=== PATIENT | female | born 1970 | race Caucasian/White ===

== ENCOUNTER 2017-06-15 12:17 | Inpatient (IN) | payer BC, OTHER ==
[~2017-06-15] VITALS: Ht 177.8 cm; Wt 61.2 kg
[2017-06-15] MEDS ORDERED: ONDANSETRON 4 MG/2 ML VIAL IM PRN (17:15)
[2017-06-15] MEDS ORDERED: HYDROXYZINE PAMOATE 25 MG CAPSULE PO PRN (17:15)
[2017-06-15] MEDS ORDERED: BUPRENORPHINE HCL 2 MG TAB.SUBL SL PRN (17:15)
[2017-06-15] MEDS ORDERED: ACETAMINOPHEN 325 MG TABLET PO PRN (17:15)
[2017-06-15] MEDS ORDERED: LOPERAMIDE HCL 2 MG CAPSULE PO PRN ×2 (17:15)
[2017-06-15] MEDS ORDERED: CLONIDINE HCL 0.1 MG TABLET PO PRN (17:15)
[2017-06-15] MEDS ORDERED: MAGNESIUM HYDROXIDE 30 ML LIQUID UDC PO PRN (17:15)
[2017-06-15] MEDS ORDERED: MIRALAX 17 GM POWD.PACK PO PRN (17:15)
[2017-06-15] MEDS ORDERED: DICYCLOMINE HCL 20 MG TABLET PO PRN (17:15)
[2017-06-15 17:46] LABS: *URINE HCG, QUAL NEGATIVE (NEGATIVE)
[2017-06-15 17:48] LABS: BASOPHILS # (AUTO) 0.1 K/uL (0.0-8.0); BASOPHILS % (AUTO) 0.7 % (0.0-2.0); EOSINOPHILS # (AUTO) 0.1 K/uL (0.0-0.7); EOSINOPHILS % (AUTO) 1.1 % (0.0-7.0); HEMATOCRIT 40.9 % (37-47); HEMOGLOBIN 13.7 G/DL (12.0-16.0); LYMPHOCYTES # (AUTO) 2.4 K/UL (0.8-4.8); LYMPHOCYTES % (AUTO) 24.2 % (20.5-51.5); MEAN CORPUSCULAR HEMOGLOBIN 29.8 UUG (27.0-31.0); MEAN CORPUSCULAR HGB CONC 33 g/dL (32.0-37.0); MEAN CORPUSCULAR VOLUME 89.1 FL (81.0-99.0); MONOCYTES # (AUTO) 0.7 K/UL (0.1-1.30); MONOCYTES % (AUTO) 7.1 % (0.0-11.0); NEUTROPHILS # (AUTO) 6.6 K/UL (1.8-8.9); NEUTROPHILS % (AUTO) 66.9 % (38.5-71.5); PLATELET COUNT (AUTO) 279 K/UL (150-450); RED BLOOD CELL COUNT(AUTO) 4.59 MIL/UL (4.2-5.4); WHITE BLOOD COUNT (AUTO) 9.9 K/UL (4.0-11.2)
[2017-06-15 17:50] VITALS: BP 118/72
--- NOTE | 2017-06-15 17:50 | NUR ---
PRE-ADMISSION Pt is in intake, alert and oriented x4. [facility]. Pt states of anxiety. Pt denies any pain or discomfort. VS are BP 118/72, P 72, R 16, O2 97% T 98.2. PA 0/10. No tremors seen or felt. Pt states of having allergies to PCN and Bactrim. Pt was seen and examined by Dr. Hansen. Pt is in stable condition and will admit pt to third floor.
[2017-06-15 17:51] LABS: *AMPHETAMINE, URINE NEGATIVE (NEGATIVE); *BARBITURATE, URINE NEGATIVE (NEGATIVE); *CANNABINOID, URINE NEGATIVE (NEGATIVE); *COCCAINE, URINE NEGATIVE (NEGATIVE); *OPIATE, URINE NEGATIVE (NEGATIVE); *PHENCYCLIDINE SCREEN,URINE NEGATIVE (NEGATIVE)
[2017-06-15 17:54] LABS: ALANINE AMINOTRANSFERASE 23 U/L (14-59); ALKALINE PHOSPHATASE 44 U/L (50-136); ASPARTATE AMINOTRANSFERASE 14 U/L (15-37); BILIRUBIN,TOTAL 0.2 mg/dL (0.2-1.0); CARBON DIOXIDE 25 mmol/L (21-32); CHLORIDE 108 mmol/L (98-107); CREATININE 0.8 mg/dL (0.6-1.3); GLUCOSE 90 mg/dL (74-106); MAGNESIUM 1.9 mg/dL (1.8-2.4); TOTAL PROTEIN, SERUM 7.4 g/dL (6.4-8.2); UREA NITROGEN, BLOOD 9 mg/dL (7-18)
[2017-06-15 17:55] LABS: ETHANOL < 3 MG/DL (0-0)
--- NOTE | 2017-06-15 18:00 | NUR ---
BODY CHECK Body check complete. Skin is intact, warm and dry to touch. Pt is noted with surgical scar on left side of neck from neck surgery 6 weeks ago.
[2017-06-15] MEDS ORDERED: OXYC-132 PO (18:33)
[2017-06-15] MEDS ORDERED: TOPI100T PO (18:33)
[2017-06-15] MEDS ORDERED: GABA-534 PO (18:33)
[2017-06-15] MEDS ORDERED: CLON0.1T PO (18:33)
[2017-06-15] MEDS ORDERED: LAMO100T PO (18:33)
[2017-06-15] MEDS ORDERED: OMEP40CA37 PO (18:33)
[2017-06-15] MEDS ORDERED: ATOR10TA PO (18:33)
[2017-06-15] MEDS ORDERED: ESCI10TA PO (18:33)
[2017-06-15] MEDS ORDERED: ATOR80TA PO (18:33)
[2017-06-15] MEDS ORDERED: LATUDA 20 MG (18:37)
[2017-06-15 20:00] VITALS: BP 117/85
--- NOTE | 2017-06-15 21:00 | NUR ---
ADMISSION NOTE-- HT-5 FEET, O INCHES. WT- 135 POUNDS OJ=186/85,T=98.3,HR=72,R=16,O2 GWJ=292%. COWS=3. Admitting 47 y/o female to [facility] for Opiate dependency under the care of Dr Hansen and Dr Davis.Pt is A/O x 4.She is allergic to PCN and Bactrim.Placed on regular diet and full code status.Pt has been taking Percocet 20 mgs daily for the past 3 months for pain due to neck surgery she had in March 2017 for disc replacement.Pt also reports HX of Bipolar disorder,acid reflux and hypercholesteremia.No HX of seizures noted.Pt has a PCP-Dr. Charles.Pt arrived on unit at 1753,was oriented to unit by day shift. notified.Skin check done,skin is intact,warm and dry to touch,pt has a surgical scar on her neck;breathing is even and non labored;abdomen is soft and palpable.no c/o n/v/d noted.Care plan and safety checks initiated.All safety measures in place;bed is locked in the lowest position with side rails up x 2,call light within reach.Pt does not have any detox hx for Percocet.She has hx of rehab for alcohol 2 years ago.She has not been drinking alcohol for 2 years.No c/o pain or s/s of acute distress noted at this time,will continue to monitor.
[2017-06-15] MEDS: GABAPENTIN 300 MG CAPSULE PO SCH (21:04)
--- NOTE | 2017-06-15 21:30 | NUR ---
MD COMMUNICATION PT STATED "I NEED TO TAKE MY BIPOLAR MEDICATIONS,I CANNOT MISS THEM".DR DUMONT CALLED AND NOTIFIED.ORDERS RECEIVED FOR LAMICTAL AND TOPAMAX.NOTED AND CARRIED OUT.
[2017-06-15] MEDS ORDERED: TOPIRAMATE 100 MG TABLET PO ONE (22:15)
[2017-06-15] MEDS: LAMOTRIGINE 100 MG TABLET PO SCH (22:16)
[2017-06-15] MEDS: METHOCARBAMOL 750 MG TABLET PO PRN (22:17)
--- NOTE | 2017-06-15 22:20 | NUR ---
PRN MEDS PRN VISTARIL,CLONIDINE AND ROBAXIN GIVEN ORDERED FOR C/O ANXIETY,CHILLS AND MYALGIA RESPECTIVELY,PER PT REQUEST.WILL MONITOR.
[2017-06-15] MEDS ORDERED: LAMOTRIGINE 100 MG TABLET ONE (22:22)
[2017-06-15] MEDS ORDERED: TOPIRAMATE 100 MG TABLET ONE (22:23)
--- NOTE | 2017-06-15 23:20 | NUR ---
PRN F/U PT VERBALIZES A DECREASE IN MYALGIA BUT STILL C/O ANXIETY,SAID "I FEEL LIKE TAKING MY PERCOCET.THIS IS HOW I FEEL WHEN I NEED MY PERCOCET".RELAXATION TECHNIQUES ENCOURAGED.WILL CONTINUE TO MONITOR.
[2017-06-15] MEDS: diphenhydrAMINE 50 MG CAPSULE PO PRN (23:47)
--- NOTE | 2017-06-15 23:55 | NUR ---
PRN BENADRYL GIVEN ORDERED FOR C/O INSOMNIA.WILL MONITOR.
[2017-06-16] VITALS: BP 116/75
--- NOTE | 2017-06-16 00:35 | NUR ---
PRN MED- PRN SUBUTEX 4 MG SL GIVEN FOR COWS SCORE OF 16.PT C/O EXTREME ANXIETY,UNABLE TO REST/SLEEP,WITH RUNNY NOSE,HAND TREMORS,ABDOMINAL DISCOMFORT AND GENERALIZED ACHES.WILL CONTINUE TO MONITOR.
--- NOTE | 2017-06-16 01:30 | NUR ---
PRN F/U PRN MEDS ARE EFFECTIVE.PT IS RESTING IN BED WITH EYES CLOSED,BREATHING IS EVEN AND NON LABORED.NO S/S OF DISTRESS NOTED.WILL CONTINUE TO MONITOR.
[2017-06-16 04:00] VITALS: BP 92/5
--- NOTE | 2017-06-16 06:33 | NUR ---
END OF SHIFT Pt is 47 y/o female admitted to [facility] for Opiate dependency.Pt is A/O x 4.She is allergic to PCN and Bactrim.Placed on regular diet and full code status.Pt has been taking Percocet 20 mgs daily for the past 3 months for pain due to neck surgery she had in March 2017 for disc replacement.Pt also reports HX of Bipolar disorder,acid reflux and hypercholesteremia.No HX of seizures noted.Initial CIWA was 18,medicated with PRN ativan,benadryl,vistaril,clonidine and robaxin with good effect.Pt slept 5 hrs,fluid intake was 1000 mls,voided x 3.All safety measures in place;bed is locked in the lowest position with side rails up x 2,call light within reach,will continue to monitor.
--- NOTE | 2017-06-16 07:00 | NUR ---
Start of Shift Notes: Received patient in her room. Alert and verbally responsive. Oriented x 4. Able to make needs known. Respirations even and unlabored. No SOB noted. Skin warm and dry to touch. Abdomen soft and non-distended with (+) BS in all 4 quadrants. No complains of N/V/D or constipation noted. Voids independently. No complains of dysuria noted. Ambulatory ad peg with steady gait. Patient is a 47 year old female admitted for opiate dependence who was placed on a 3-day Subutex taper as ordered. No adverse reactions noted. Has past medical hx of bipolar disorder, acid reflux and high cholesterol. Prior to admission, patient was using 20 mg of Percocet daily x 3 months. Educated patient on the current plan of care for the day and her medication regimen. Encouraged oral fluid intake and encouraged group participation to learn new skills to prevent relapse. Siderails up and padded for safety. Call light kept in reach. Will continue to monitor closely. Addendum: 06/16/17 at 0746 by CHARISSA WILDE LVN Note clarification. Patient was not placed on any taper at this time.
--- NOTE | 2017-06-16 07:53 | NUR ---
Order Clarification: Order clarification obtained regarding patient's Topamax. Per patient, she uses Topamax 100 mg PO at HS only not BID. Order clarified with MD. Orders noted and carried out.
[2017-06-16 08:00] VITALS: BP 97/51
[2017-06-16] MEDS: DOCUSATE SODIUM 250 MG CAPSULE PO SCH (08:53)
[2017-06-16] MEDS: GABAPENTIN 300 MG CAPSULE PO SCH ×3 (08:53→21:52)
[2017-06-16] MEDS: LAMOTRIGINE 100 MG TABLET PO SCH ×2 (08:53→21:51)
[2017-06-16] MEDS: IBUPROFEN 600 MG TABLET PO PRN ×2 (08:53→21:52)
--- NOTE | 2017-06-16 08:53 | NUR ---
Mylanta 30cc PO/Ibuprofen 600 mg PO given: Patient noted of acid reflux/GI upset and complain of 4/10 headache. Medicated patient with Motrin 600 mg PO as ordered and Mylanta 30 cc PO. Will monitor for effectiveness.
[2017-06-16] MEDS: MAG HYDROX/AL HYDROX/SIMETH 30 ML LIQUID UDC PO PRN (08:55)
[2017-06-16] MEDS ORDERED: TOPIRAMATE 100 MG TABLET PO SCH (09:00)
[2017-06-16] MEDS ORDERED: TUBERCULIN,PURIF.PROT.DERIV. 5 TU/0.1 ML TEST ID ONE (09:00)
[2017-06-16] MEDS ORDERED: 3 DAY TAPER BUPRENORPHINE -SERENITY PROTOCOL SL PRN (09:00)
[2017-06-16] MEDS ORDERED: BUPRENORPHINE HCL 2 MG TAB.SUBL SL SCH (09:00)
--- NOTE | 2017-06-16 09:35 | NUR ---
Re-assessment: Per patient, PRN Motrin was effective in relieving headache. PL 0/10, and Mylanta 30cc PO was effective in reducing GI upset.
--- NOTE | 2017-06-16 10:35 | NUR ---
Admission UDS result: Patient's UDS also came (+) for benzodiazepine. Upon interview with the patient, she revealed that she took 0.5mg of Xanax on Sat (06/13/20170 and Sun (06/14/2017) due to anxiety. Patient states that she is prescribed Xanax for anxiety, however has not been taking it for 1 year until this past weekend. Notified MD, per MD, continue current orders.
--- NOTE | 2017-06-16 10:48 | NUR ---
Taper initiated: Patient was placed on 4-day Subutex taper today. First dose of 4mg SL was given with 0900 meds. Patient tolerated well. Education provided.
--- NOTE | 2017-06-16 11:11 | NUR ---
MD Communication: New orders: Patient noted with complain of itching. No rashes. No lesions noted on generalized body area. Notified MD Mckeon. Medicated patient with Benadryl 50 mg PO x 1 now. is away from the computer and is unable to enter in orders at this time. Orders noted and carried out.
[2017-06-16] MEDS ORDERED: diphenhydrAMINE 50 MG CAPSULE PO ONE (11:15)
[2017-06-16] MEDS: ESCITALOPRAM OXALATE 10 MG TABLET PO SCH (11:18)
--- NOTE | 2017-06-16 11:23 | NUR ---
Benadryl 50mg PO given: Medicated patient with x 1 dose of Benadryl 50 mg PO as ordered for itching. Will monitor for effectiveness.
[2017-06-16 12:00] VITALS: BP 92/61
[2017-06-16] MEDS: BUPRENORPHINE HCL 2 MG TAB.SUBL SL SCH ×3 (12:09→21:52)
--- NOTE | 2017-06-16 12:23 | NUR ---
Re-assessment: Per patient, PRN Benadryl was effective in relieving itching.
--- NOTE | 2017-06-16 15:00 | NUR ---
New orders: Patient noted with complains of urinary retention. Notified MD Hansen. Per MD, perform bladder scan. Bladder scan was performed and obtained 976cc of urine from the results. Notified Dr. Hansen per MD, monitor for 1 hour and if patient still does not void, to insert catheter. Notified patient.
[2017-06-16 16:00] VITALS: BP 109/71
--- NOTE | 2017-06-16 16:00 | NUR ---
MD Communication: Patient reports voiding 1x but still feels her bladder full. Notified Dr. Hansen with orders to do another bladder scan. Bladder scan was performed and obtained 775cc of urine. Notified Dr. Hnasen, per MD, insert indwelling catheter as ordered. Orders noted and carried out. Patient education provided. Will continue to encourage oral fluid intake.
--- NOTE | 2017-06-16 16:01 | NUR ---
Add'l notes: Bladder noted to be distended at this time.
--- NOTE | 2017-06-16 16:45 | NUR ---
F/C inserted: Juarez catheter [id number] inserted at this time via aseptic technique, with output of 1000cc of clear yellow urinary output. Patient was able to tolerated the procedure well. Educated patient on juarez catheter care. Educated patient on the s/s of UTI. Patient verbalized fair understanding. F/C patent and intact draining to a urinary leg bag.
--- NOTE | 2017-06-16 17:59 | NUR ---
Subutex 4 mg at 1700 held: Patient appears too sedated. Dozing on and off and unable to carry on a coherent conversation. Notified Dr. Hansen. Per , ok to hold 1700 dose at this time.
--- NOTE | 2017-06-16 19:15 | NUR ---
Start of Shift Patient Received. Patient noted in bed sleeping. Breathing even and non labored. No signs of pain or discomfort noted. Patient is a 47 year old female, admitted on 06/15/17 for Opioid Dependence, under the care of Dr. Hansen. Patient is currently receiving a 5 day Subutex taper. Patient verbalizes allergy to Bactrim and PCN, wishes to be full code, following a regular diet, Patient past medical history noted as Bipolar, Acid reflux, hyper cholesterol, and multiple bladder surgeries. Per endorsement, patient was verbalizing inability of voiding. Bladder scan rendered and noted with urine retention. New orders obtained for Linares catheter insertion. Patient able to tolerate a [place] 16 by 10cc. Last noted COWS 3. All needs attended to promptly. Will continue plan of care as ordered.
--- NOTE | 2017-06-16 19:18 | NUR ---
End of Shift Notes: Patient initiated her 3-day Subutex taper as ordered. No adverse reactions noted. Patient is tolerating taper well. VS monitored closely q 4 hours. No significant abnormalities noted. Withdrawal symptoms were closely monitored. Initial COWS 8. Patient presented with anxiety, gross tremors, headache, chills and hot flashes. Last COWS 3. Per patient, Subutex has been helping her with her withdrawal symptoms. Seen by Dr. Davis (psychiatrist) with new orders. Orders noted. Patient noted with episodes of oversedation during the day requiring Subutex to be held at 1700 but patient insisted on smoking. Patient became very agitated and wanted to smoke. Educated patient on the risk involved but patient still refused. MD made aware. To continue to monitor the patient. Unable to participate in group and activities due to her withdrawal symptoms and feelings of fatigue during the day. Linares catheter inserted today. FC 16x10 patent and intact draining to clear yellow colored urinary output. F/C care rendered. All needs met and attended. Call light in reach. Will continue to monitor closely.
[2017-06-16 20:30] VITALS: BP 110/68
[2017-06-16] MEDS ORDERED: NICOTINE POLACRILEX 4 MG GUM-PK OF TEN BC PRN (21:15)
[2017-06-16] MEDS: LATUDA 20 MG PO SCH (21:51)
[2017-06-16] MEDS: TOPIRAMATE 100 MG TABLET PO SCH (21:52)
--- NOTE | 2017-06-16 22:30 | NUR ---
PRN Medication Reassessment Patient noted in hallway going out for a smoke break. Patient is able to verbalize "the pain is so much better. The Motrin really helped a lot." PRN Motrin noted to be effective. Will continue to monitor.
--- NOTE | 2017-06-16 22:55 | NUR ---
PRN Medication Administration Patient verbalizing increased pain /10 due to juarez catheter. PRN Motrin administered with routine medications as per order. Will continue to monitor.
[2017-06-17 00:30] VITALS: BP 107/61
[2017-06-17 04:00] VITALS: BP 95/54
[2017-06-17] MEDS: IBUPROFEN 600 MG TABLET PO PRN ×3 (04:25→23:24)
--- NOTE | 2017-06-17 04:25 | NUR ---
PRN Motrin: Pt c/o headache, rates pain 4/10. Administered PRN Motrin 600mg PO as ordered. Will endorse f/u to primary nurse.
--- NOTE | 2017-06-17 06:59 | NUR ---
End of Shift Patient is in bed sleeping. Breathing even and non labored. No signs of pain or discomfort noted. Patient is a 47 year old female, admitted on 06/15/17 for Opioid Dependence, under the care of Dr. Hansen. Patient is currently receiving a 5 day Subutex taper. Patient verbalizes allergy to Bactrim and PCN, full code, Regular diet, skin noted intact. Patient past medical history noted as Bipolar, Acid reflux, hyper cholesterol, and multiple bladder surgeries. Linares Catheter patent and intact. PRN Motrin administered x2 for pain with medication noted to be effective. Last noted COWS 7. All needs attended to promptly. Will endorse to continue plan of care as ordered.
[2017-06-17] MEDS: MAG HYDROX/AL HYDROX/SIMETH 30 ML LIQUID UDC PO PRN ×3 (07:09→23:24)
--- NOTE | 2017-06-17 07:09 | NUR ---
Mylanta 30cc PO given: Patient noted with complain of GI upset and requested for Mylanta. Mylanta 30cc PO given at this time. Will monitor for effectiveness.
--- NOTE | 2017-06-17 07:10 | NUR ---
Start of Shift Notes: Received patient in her room. Alert and verbally responsive. Oriented x 4. Able to make needs known. Respirations even and unlabored. No SOB noted. Skin warm and dry to touch. Abdomen soft and non-distended with (+) BS in all 4 quadrants. No complains of N/V/D or constipation noted. F/C 16x10 patent and intact draining to clear yellow colored urinary output of 675cc. Ambulatory ad peg with steady gait. Patient is a 47 year old female admitted for opiate dependence who was placed on a 4-day Subutex taper as ordered. No adverse reactions noted. That was started yesterday. Has past medical hx of bipolar disorder, acid reflux and high cholesterol. Prior to admission, patient was using 20 mg of Percocet daily x 3 months. Educated patient on the current plan of care for the day and her medication regimen. Encouraged oral fluid intake and encouraged group participation to learn new skills to prevent relapse. Siderails up and padded for safety. Call light kept in reach. Will continue to monitor closely.
[2017-06-17 08:00] VITALS: BP 100/62
[2017-06-17 08:08] LABS: HEPATITIS B SURFACE AG Negative (Negative)
--- NOTE | 2017-06-17 08:09 | NUR ---
Re-assessment: Per patient, PRN Mylanta was effective in reducing patient's GI upset.
[2017-06-17] MEDS ORDERED: BUPRENORPHINE HCL 2 MG TAB.SUBL SL SCH ×2 (09:00)
[2017-06-17] MEDS ORDERED: Medication Not On Formulary EA (Omeprazole 1 CAP) PO SCH (09:00)
[2017-06-17] MEDS: ESCITALOPRAM OXALATE 10 MG TABLET PO SCH (09:28)
[2017-06-17] MEDS: DOCUSATE SODIUM 250 MG CAPSULE PO SCH (09:28)
[2017-06-17] MEDS: LAMOTRIGINE 100 MG TABLET PO SCH ×2 (09:28→21:42)
[2017-06-17] MEDS: GABAPENTIN 300 MG CAPSULE PO SCH ×3 (09:28→21:43)
[2017-06-17 12:00] VITALS: BP 97/59
--- NOTE | 2017-06-17 12:05 | NUR ---
MD Communication: Patient noted with complain of itching. Patient appears flushed. No hives noted. No rashes. No unusal lesions noted. Patient also verbalizes "I am having difficulty swallowing." However, patient is seen drinking water with no episodes of aspiration or difficulty swallowing. Patient was not allowed to smoke in the patio but continues to insist that she goes to smoke in the patio despite multiple times staff educated her on the risk involved. Offered Nicotine gum and became agitated along the hallway. Encouraged good behavior and explained the consequences. Patient still strongly insisted on going downstairs to smoke. Notified Dr. Hansen. MD is driving and unable to enter in orders. Orders obtained for Benadryl 25 mg PO q 6 hours PRN for itching. Orders noted and carried out.
[2017-06-17] MEDS: diphenhydrAMINE 25 MG CAP PO PRN (12:35)
--- NOTE | 2017-06-17 12:35 | NUR ---
Benadryl 25 mg PO given: Patient noted with complain of itching. Requested for Benadryl. Medicated patient with Benadryl 25 mg PO as ordered. Will monitor for effectiveness.
[2017-06-17] MEDS ORDERED: PANTOPRAZOLE SODIUM 40 MG TABLET.DR PO STA (12:37)
--- NOTE | 2017-06-17 12:45 | NUR ---
MD Communication: Patient complained of heartburn and nausea. Requested for Protonix to be given at this time. Notified MD Hansen. Per MD, OK to administer Protonix 40 mg PO x 1 now. MD is unable to enter in orders. Orders entered. Noted and carried out.
[2017-06-17] MEDS: ONDANSETRON ODT 4 MG TAB.RAPDIS SL PRN ×2 (12:58→23:25)
--- NOTE | 2017-06-17 12:59 | NUR ---
Zofran 4 mg ODT given/Protonix 40 mg PO given: Patient was given Protonix 40 mg PO and Zofran 4 mg ODT for nausea. Will monitor for effectiveness.
--- NOTE | 2017-06-17 13:35 | NUR ---
Re-assessment: Per patient, PRN Benadryl has been effective in reducing itching.
--- NOTE | 2017-06-17 13:59 | NUR ---
Re-assessment: Zofran and Protonix Per patient, PRN Zofran and Protonix has been effective in reducing GI upset and nausea. Will monitor closely.
[2017-06-17] MEDS: BUPRENORPHINE HCL 2 MG TAB.SUBL SL SCH ×2 (14:05→21:41)
[2017-06-17 16:00] VITALS: BP 117/80
--- NOTE | 2017-06-17 16:21 | NUR ---
Motrin 600 mg PO given: patient noted with complain of 5/10 generalized aching related to her withdrawal symptoms. Medicated patient with Motrin 600 mg PO as ordered. Will monitor for effectiveness.
--- NOTE | 2017-06-17 17:21 | NUR ---
Re-assessment: Per patient, PRN Motrin was efective in reducing patient's aching. PL 12/05.
--- NOTE | 2017-06-17 18:17 | NUR ---
Mylanta 30 cc PO given: Patient noted with complain of GI upset. Requested for Mylanta. Medicated patient with Mylanta 30 cc PO as ordered.
--- NOTE | 2017-06-17 19:00 | NUR ---
End of Shift Notes: Patient continues to be on 4-day Subutex taper as ordered. No adverse reactions noted. Patient is tolerating taper well. VS monitored closely. No significant abnormalities noted. Withdrawal symptoms were closely monitored. Patient presented with anxiety, chills, hot flashes and mild tremors. Initial COWS 5. Per patient, Subutex has been helping her with her withdrawal symptoms. Medicated patient with Mylanta 30cc po at 0709 for GI upset with help after 1 hour. At 1235, patient complained of itching. Medicated patient with Benadryl 25 mg PO as ordered with help afte 1 hour. Then patient complained of episodes of gastric reflux and gastritis, medicated patient with Protonix 40 mg and Zofran 4 mg ODT PO for nausea with help after 1 hour. PRN Motrin was given at 1621 for generalized body aches and Mylanta 1816 for GI upset. Last COWS 3. Patient was unable to participate in group and activities. Spends most of the day smoking in the patio and at times hovers at the nurses station demanding for more meds despite education was provided. F/C patient and intact. Draining to clear yellow colored urinary output. FC care rendered. Emptied x 4 times with good output of 1975cc Tolerated well. All needs met and attended. Will continue to monitor closely.
--- NOTE | 2017-06-17 20:00 | NUR ---
START OF SHIFT NOTE Patient is a 47 year old female admitted for opiate dependence who was placed on a 4-day Subutex taper as ordered. No adverse reactions noted. . Past medical hx of bipolar disorder, acid reflux and high cholesterol. Prior to admission, patient was using 20 mg of Percocet daily x 3 months. Received patient in her room. Alert and verbally responsive. Oriented x 4. Able to make needs known. Respirations even and unlabored. No SOB noted. Skin warm and dry to touch. No complains of N/V/D or constipation noted. Ambulatory with steadt gait. Educated patient on the current plan of care for the day and her medication regimen. Encouraged oral fluid intake and encouraged group participation to learn new skills to prevent relapse. Siderails up and padded for safety. Call light kept in reach. Will continue to monitor closely.
[2017-06-17] MEDS: LATUDA 20 MG PO SCH (21:41)
[2017-06-17] MEDS: TOPIRAMATE 100 MG TABLET PO SCH (21:42)
[2017-06-17] MEDS: ATORVASTATIN 10 MG TABLET PO SCH (21:42)
[2017-06-17 22:46] VITALS: BP 106/71
[2017-06-17] MEDS: diphenhydrAMINE 50 MG CAPSULE PO PRN (23:25)
[2017-06-18] VITALS (7 sets, daily range): BP systolic 89–126; BP diastolic 48–81
--- NOTE | 2017-06-18 00:22 | NUR ---
PRN MEDICATION ADMINISTRATION administered zofran 4mg as ordered at 2325 (06/17/17). Pt complained of nausea. Will reasses and continue to monitor
--- NOTE | 2017-06-18 00:25 | NUR ---
PRN MEDICATION ADMINISTRATION BENEDRYL 50MG WAS GIVEN AT 2325, TO PATIENT PER MD ORDER. PT COMPLAINED OF ITCHING. WILL REASSESS AND CONTINUE TO MONITOR.
--- NOTE | 2017-06-18 00:27 | NUR ---
PRN MEDICATION ADMINISTRATION MAALOX 30ML WAS ADMINISTERED TO PT FOR COMPLAINT OF HEARTBURN. WILL REASSESS AND CONTINUE TO MONITOR.
--- NOTE | 2017-06-18 01:00 | NUR ---
PRN REASSESSMENT PATIENT REASSESSED FOR NAUSEA, HEARTBURN, ITCHING AND BODY ACHES. PT SYMPTOMS HAS SUBSIDED AND SHE IS RESTING PEACEFULLY. WILL CONTINUE TO MONITOR.
[2017-06-18] MEDS ORDERED: PANTOPRAZOLE SODIUM 40 MG TABLET.DR PO SCH (07:00)
--- NOTE | 2017-06-18 07:00 | NUR ---
End of shift note Patient continues to be on 4-day Subutex taper as ordered. No adverse reactions noted. Patient is tolerating taper well. VS monitored closely. No significant abnormalities noted. Withdrawal symptoms were closely monitored. PRN meds Benedryl 50mg for itching, Maalox 30ml for heartburn, and Zofran 4mg for nausea, were given at 2355, all symptoms has subsided. Pt intake 2557ml, and slept 4.5hrs. F/C patent and intact. Urine output was 1500ml. Draining to clear yellow colored urinary output. FC care rendered. Tolerated well. All needs met and attended. Will continue to monitor closely.
--- NOTE | 2017-06-18 07:10 | NUR ---
Start of shift note Pt was admitted for opiate dependence. Pt is a full code, on a regular diet, report an allergy to PCN, and bactrim. pt has a PMhx of bipolar d/o, acid reflux, multiple bladder surgeries with a juarez catheter in place. Pt states that she is able to drain her f/c by herself, pt states that she is writing down the amounts that she drains. Educated pt to keep track of her PO fluids as well, pt verbalized her understanding. Pt is on day 4 of a subutex taper and tolerating well. Pt has no complaints at this time. Will continue to monitor pt. All needs addressed at this time.
[2017-06-18] MEDS ORDERED: BUPRENORPHINE HCL 2 MG TAB.SUBL SL SCH (09:00)
[2017-06-18] MEDS: BUPRENORPHINE HCL 2 MG TAB.SUBL SL SCH ×3 (09:57→21:37)
[2017-06-18] MEDS: IBUPROFEN 600 MG TABLET PO PRN ×2 (09:57→21:36)
[2017-06-18] MEDS: ESCITALOPRAM OXALATE 10 MG TABLET PO SCH (09:57)
[2017-06-18] MEDS: diphenhydrAMINE 25 MG CAP PO PRN ×2 (09:57→16:50)
[2017-06-18] MEDS: LAMOTRIGINE 100 MG TABLET PO SCH ×2 (09:57→21:35)
[2017-06-18] MEDS: DOCUSATE SODIUM 250 MG CAPSULE PO SCH (09:57)
[2017-06-18] MEDS: GABAPENTIN 300 MG CAPSULE PO SCH ×3 (09:57→21:35)
--- NOTE | 2017-06-18 09:58 | NUR ---
PRN administration Pt c/o body aches and back pain 02/02, and itching. Administered PRN motrin and benadryl per MD order. Will continue to monitor pt.
[2017-06-18] MEDS: MAG HYDROX/AL HYDROX/SIMETH 30 ML LIQUID UDC PO PRN ×3 (10:49→21:36)
[2017-06-18] MEDS: ONDANSETRON ODT 4 MG TAB.RAPDIS SL PRN ×3 (10:49→21:36)
--- NOTE | 2017-06-18 10:58 | NUR ---
PRN administration/Reassessment Pt states that her pain and itching have subsided. However pt states that she has nausea and states "I believe that it is from the medication" Administered PRN zofran and maalox. Dr Hansen notified. Will continue to monitor pt.
--- NOTE | 2017-06-18 11:28 | NUR ---
Reassessment Pt states that the medication was effective in alleviating her nausea.
[2017-06-18] MEDS ORDERED: FAMOTIDINE 20 MG TABLET PO ONE (14:00)
--- NOTE | 2017-06-18 14:52 | NUR ---
Therapist prompted client about group times. Client stated she will attend all groups.
--- NOTE | 2017-06-18 16:50 | NUR ---
PRN administration Pt c/o nausea, dyspepsia and itching. Administered PRN maalox, zofran and benadryl.
--- NOTE | 2017-06-18 17:20 | NUR ---
Reassessment Pt states that the medication was effective in reducing her nausea and dyspepsia. Will continue to monitor pt.
--- NOTE | 2017-06-18 17:53 | NUR ---
Reasssessment Pt states that her itching has subsided. Will continue to monitor pt.
--- NOTE | 2017-06-18 18:55 | NUR ---
End of shift note Pt was admitted for opiate dependence. Pt is a full code, on a regular diet, report an allergy to PCN, and bactrim. pt has a PMhx of bipolar d/o, acid reflux, multiple bladder surgeries with a juarez catheter in place. Catheter is draining well. Pt is able to drain the f/c herself. Urine noted to be light yellow and clear. No apparent odor noted. Pt is on day 4 of a subutex taper and tolerating well. Pt had nausea x 2 today, Maalox x 2, Benadryl x 2 and motrin x 1 during the shift with effectiveness for her withdrawal s/s. Pt had 2300ml of urine out, drank 2750 ml of fluids and at 100% of breakfast and dinner, ate 50% of lunch. Pt has no further complaints at this time. Pt had a recent COWS of 5. Will endorse SBAR to oncoming shift.
--- NOTE | 2017-06-18 19:45 | NUR ---
Start of shift note Endorsement from AM shift. Pt was admitted for opiate dependence on 06/15/17. Patient is a full code, on a regular diet, reports an allergy to PCN, and bactrim. pt has a past psych history of bipolar d/o, and past medical history of acid reflux, multiple bladder surgeries with a juarez catheter in place. Pt states that she is able to drain her cathetar by herself, pt states that she is writing down the amounts that she drains. at start of shift patient Educated pt to keep track of her PO fluids as well, pt verbalized her understanding. Pt is on day 4 of a subutex taper and tolerating well. Pt has no complaints at present time. Will continue to monitor pt. All needs met at this time. Safety measures in place.
[2017-06-18] MEDS: TOPIRAMATE 100 MG TABLET PO SCH (21:35)
[2017-06-18] MEDS: ATORVASTATIN 10 MG TABLET PO SCH (21:35)
[2017-06-18] MEDS: diphenhydrAMINE 50 MG CAPSULE PO PRN (21:36)
[2017-06-18] MEDS: METHOCARBAMOL 750 MG TABLET PO PRN (21:36)
--- NOTE | 2017-06-18 21:36 | NUR ---
PRN Medication Patient with complaints of nausea. Administered zofran 4mg SL at 2135 with effect pending. Patient C/O "heartburn" administered Maalox 30 ML PO at 2135.with effect pending Patient with complaints of Body aches of a 7 out of 10 and muscle spasms of a 6 out of 10. Patient given Robaxin 750 mg PO and Motrin 600 mg PO at 2135 with effect pending. Patient C/O inability to sleep/insomnia. Administered Benadryl 50 mg PO at 2135 with effect pending.
[2017-06-18] MEDS: LATUDA 20 MG PO SCH (21:37)
--- NOTE | 2017-06-18 22:36 | NUR ---
Reassessment of patient zofran 4mg SL given at 2135 with good effect noted at 2235 with no further C/O nausea. Maalox 30 ML PO given at 2135 for heatburn with effectiveness noted at 2235. No further C/O heartburn present. Patient given Robaxin 750 mg PO and Motrin 600 mg PO at 2135 reassessed at 2235 with relief of muscle spasms and decrease in body aches to a 3 out of 10. . Administered Benadryl 50 mg PO at 2135 with reassessment at 2235 with patient still awake, but stating she is beginning to feel effect.
[2017-06-19] VITALS: BP 116/81
[2017-06-19 04:00] VITALS: BP 101/62
[2017-06-19] MEDS: IBUPROFEN 600 MG TABLET PO PRN ×2 (04:51→15:26)
--- NOTE | 2017-06-19 04:58 | NUR ---
PRN Medication Patient reported Boidyaches of a 7 out of 10. Administered Motrin 600 mg PO at 0451. Effect pending.
--- NOTE | 2017-06-19 05:58 | NUR ---
Reassessment of patient Patient reassessed one hour after PRN Motrin 600mg given for bodyaches. Patient with no further C/O pain/bodyaches. Laying in bed resting comfortably.
--- NOTE | 2017-06-19 06:56 | NUR ---
End of Shift report: Patient is a 47 yr old female admitted on 06-15-17 for opiate detox. She is on a subutex taper and is currently on day 5. She is a full code and on a regular diet. She has allergies to PCN and Bactrim. Patient also has history of Bipolar disorder, acid reflux, and high cholesterol. She has had multiple bladder issues and surgeries. Due to urinary retention upon admission, a juarez catheter was inserted on 06-16-[address] with no noted issue. Patients VS at 2000: 128/70, SPO2 99 % on RA, P 78, R 16, T 97.7 COWS 2. Patients VS at 0000: BP 116/81, P 91, SPO2 96%, R 18. COWS 5. Patients VS at 0400: BP 101/62, P 103, SPO2 97% on RA, T 98.1, R 18. COWS: 4. Intake 3250 ml Output: 1850 ml via Juarez Catheter. No BM. Slept 6 [address] Safety measures in place. Endorsement to AM nurse given. Will continue to monitor.
--- NOTE | 2017-06-19 08:00 | NUR ---
START OF SHIFT Rcvd endorsement from ongoing nurse, client is in room, a/o x4, she presents with anxious mood, flat affect, moist skin, flushed face. She reports abdominal cramps and chills, no nausea or diarrhea. Juarez 16F 10mL intact/patent, 650mL of clear urine, normal odor, no sediments emptied from urinary leg bag. Client states "I do not want you to take the juarez out yet, I am scare I won't be able to urinate on my own, because I had a history of urinary problems." Encouraged client to increase fluid intake to facilitate detox. Encourage client to attend group therapy for skills to maintain sobriety. Client is a 47 yo female admitted for withdrawal from opiates. She is on last of 5 day Subutex taper, tolerating well. Last COWS 4 @ 0400. She reports allergies to Penicillin, Sulfamethoxazole and trimethoprim. Full code, regular diet. PRN Robaxin for muscle pain, Zofran for nausea, Maalox for heartburn, Motrin x 2 for generalized body aches, and Benadryl for inability to sleep, noted effective, client slept 6 hrs. Client denies any history of withdrawal-induced seizure. She is on universal precautions. Call light within reach. Side rails up x 2, bed locked and in low position.
[2017-06-19 08:15] VITALS: BP 104/71
[2017-06-19] MEDS: DOCUSATE SODIUM 250 MG CAPSULE PO SCH (08:51)
[2017-06-19] MEDS: OMEPRAZOLE 40MG PO SCH (08:51)
[2017-06-19] MEDS: FAMOTIDINE 20 MG TABLET PO SCH (08:51)
[2017-06-19] MEDS: ESCITALOPRAM OXALATE 10 MG TABLET PO SCH (08:51)
[2017-06-19] MEDS: GABAPENTIN 300 MG CAPSULE PO SCH ×2 (08:51→15:26)
[2017-06-19] MEDS: LAMOTRIGINE 100 MG TABLET PO SCH ×2 (08:52→20:55)
[2017-06-19] MEDS ORDERED: BUPRENORPHINE HCL 2 MG TAB.SUBL SL SCH (09:00)
[2017-06-19] MEDS: diphenhydrAMINE 25 MG CAP PO PRN (09:18)
[2017-06-19] MEDS: METHOCARBAMOL 750 MG TABLET PO PRN ×2 (09:18→20:56)
[2017-06-19] MEDS: MAG HYDROX/AL HYDROX/SIMETH 30 ML LIQUID UDC PO PRN ×3 (09:18→20:56)
--- NOTE | 2017-06-19 09:18 | NUR ---
PRN maalox and benadryl. Client reports heartburn and generalized itching. Administered above medications, will continue to monitor. Call light within reach.
--- NOTE | 2017-06-19 10:18 | NUR ---
Reassessment PRN maalox and benadryl. Client reports relief from heartburn and generalized itching. Call light within reach.
--- NOTE | 2017-06-19 11:36 | NUR ---
Linares 16F X 10ml removed, client was able to void x 1, clear yellow, normal odor. Will continue to monitor.
[2017-06-19 12:55] VITALS: BP 125/87
--- NOTE | 2017-06-19 15:26 | NUR ---
PRN Maalox 30mL and Ibuprofen 600mg Client reports heartburn and generalized body aches 5/10. Administered above medications, will continue to monitor. Call light within reach.
--- NOTE | 2017-06-19 16:26 | NUR ---
Reassessment PRN Maalox 30mL and Ibuprofen 600mg Client states relief from heartburn and generalized body aches 0/10. Call light within reach.
[2017-06-19 16:55] VITALS: BP 123/73
--- NOTE | 2017-06-19 17:39 | NUR ---
Client with non-pitting edema on bilateral foot, encourage to elevate lower extremities. Dr. Hansen notified.
[2017-06-19 18:47] LABS: *AMPHETAMINE, URINE NEGATIVE (NEGATIVE); *BARBITURATE, URINE NEGATIVE (NEGATIVE); *CANNABINOID, URINE NEGATIVE (NEGATIVE); *COCCAINE, URINE NEGATIVE (NEGATIVE); *OPIATE, URINE NEGATIVE (NEGATIVE); *PHENCYCLIDINE SCREEN,URINE NEGATIVE (NEGATIVE)
--- NOTE | 2017-06-19 18:59 | NUR ---
END OF SHIFT Endorsed to incoming nurse, client is a 47 yo female admitted for withdrawal from opiates. She is on last of 5 day Subutex taper, tolerating well. Last COWS 4 @ 1600. She reports allergies to Penicillin, Sulfamethoxazole and trimethoprim. Full code, regular diet. PRN Benadryl 25mg for itching, Maalox x 2 for heartburn, Ibuprofen for generalized body aches, noted effective, Linares DC'd client able to void without difficulty or pain. Bilateral foot with non-pitting edema, encourage client to elevate lower extremities as tolerated. Dr. Hansen notified, NNO at this time. Client is compliant with group therapy. Adequate PO fluid intake 2255mL, void x 10 . Client denies any history of withdrawal-induced seizure. She is on universal precautions. Call light within reach. Side rails up x 2, bed locked and in low position.
[2017-06-19 20:00] VITALS: BP 133/81
--- NOTE | 2017-06-19 20:00 | NUR ---
START OF SHIFT NOTE RECEIVED PATIENT ALERT AND ORIENTED X 4. RESPIRATION EVEN AND UNLABORED. PATIENT STATES SHES DISCHARGING TOMORROW. HER HEARTBURN IS BETTER THAN IT HAS BEEN. PATIENT C/O GENERALIZED BODY ACHES 02/02. SHE ATTENDED GROUPS . APPETITE IS GOOD AND DRINKING FLUID WELL. NO BM REPORTED. NO ABDOMINAL PAIN OR C/O CONSTIPATION. ABLE TO URINATE , NO DIFFICULTY. CLIENT NOTED WITH NON-PITTING EDEMA ON BILATERAL FOOT, ENCOURAGED TO ELEVATE WHEN IN BED. PATIENT IS A 47 YEAR OLD FEMALE ADMITTED FOR OPIATE DEPENDENCE. PATIENT COMPLETED 4 DAY SUBUTEX TAPER. PATIENT IS MEDICALLY CLEARED TO BE DISCHARGED TOMORROW. PER DAY SHIFT NURSE. THOMPSON CATHETER WAS DISCONTINUE, PATIENT ABLE TO VOID . PATIENT WAS C/O BODY ACHES, ITCHINESS AND HEARTBURN. PATIENT WAS GIVEN BENADRYL, MAALOX X 2 AND IBUPROFEN. PATIENT WAS NOTED NON-PITTING EDEMA. DR. KENT AWARE WITH NO NEW ORDER AT THIS TIME. LAST COWS 4. ON FALL PRECAUTION. SAFETY MEASURES IN PLACE. CALL LIGHT IN REACH. WILL CONTINUE TO MONITOR.
[2017-06-19] MEDS: LATUDA 20 MG PO SCH (20:54)
[2017-06-19] MEDS: ATORVASTATIN 10 MG TABLET PO SCH (20:55)
[2017-06-19] MEDS: diphenhydrAMINE 50 MG CAPSULE PO PRN (20:56)
[2017-06-19] MEDS: TOPIRAMATE 100 MG TABLET PO SCH (20:56)
--- NOTE | 2017-06-19 20:56 | NUR ---
PRN BENADRYL,MAALOX AND ROBAXIN ADMINISTRATION PATIENT C/O HEARTBURN, GENERALIZED BODY ACHES 02/02 AND REQUESTS FOR SLEEP AID. PRN MAALOX, ROBAXIN AND BENADRYL GIVEN. WILL MONITOR FOR EFFECTIVENESS
[2017-06-19] MEDS ORDERED: GABAPENTIN 300 MG CAPSULE PO SCH (21:00)
--- NOTE | 2017-06-19 21:56 | NUR ---
PRN MAALOX AND ROBAXIN RE-ASSESSMENT PATIENT STATES MAALOX AND ROBAXIN HELPFUL. PAIN LEVEL 2 AT THIS TIME. NO C/O HEARTBURN AT THIS TIME. WILL CONTINUE TO MONITOR.
--- NOTE | 2017-06-19 23:00 | NUR ---
[facility] RE-ASSESSMENT PATIENT ASLEEP AT THIS TIME. NO S/S OF DISTRESS. RESPIRATION EVEN AND UNLABORED . SAFETY MEASURES IN PLACE. CALL LIGHT IN REACH. WILL CONTINUE TO MONITOR.
--- NOTE | 2017-06-20 | NUR ---
COWS /VS PATIENT ASLEEP. NO S/S OF DISTRESS. RESPIRATION JONATHAN AND UNLABORED. RR 15. SAFETY MEASURES IN PLACE. CALL LIGHT IN REACH. WILL CONTINUE TO MONITOR
--- NOTE | 2017-06-20 04:00 | NUR ---
COWS/VS PATIENT REFUSED TO BE WOKEN UP. COWS UNABLE TO ASSESS. RESPIRATION EVEN AND UNLABORED. NO S/S OF DISTRESS. SAFETY MEASURES I PLACE. CALL LIGHT IN REACH. WILL CONTINUE TO MONITOR
--- NOTE | 2017-06-20 07:08 | NUR ---
END OF SHIFT NOTE PATIENT COMPLETED 4 DAY SUBUTEX TAPER. PATIENT IS MEDICALLY CLEARED TO BE DISCHARGED TODAY. PATIENT REMAIN ALERT AND ORIENTED X 4. RESPIRATION EVEN AND UNLABORED. PATIENT C/O GENERALIZED BODY ACHES 02/02. SHE ATTENDED GROUPS . APPETITE IS GOOD AND DRINKING FLUIDS WELL PATIENT WAS GIVEN PRN BENADRYL, MAALOX AND ROBAXIN AT 2055. ON FALL PRECAUTION. SAFETY MEASURES IN PLACE. CALL LIGHT IN REACH. WILL CONTINUE TO MONITOR. SLEPT 7 HOURS. FLUID INTAKE 1,500 ML. VOIDED X 3 . NO BM. LAST COWS 3.
--- NOTE | 2017-06-20 07:45 | NUR ---
START OF SHIFT Rcvd endorsement from ongoing nurse, client is in room, a/o x4, she presents with anxious mood and flat affect She denies N/V/D. Client is scheduled for discharge this morning she is going home. Client is a 47 yo female admitted for withdrawal from opiates. She completed 5 day Subutex taper, tolerated well. Last COWS 3 @ 0400. She reports allergies to Penicillin, Sulfamethoxazole and trimethoprim. Full code, regular diet. PRN Robaxin for muscle pain, Zofran for nausea, Maalox for heartburn, Benadryl for inability to sleep, noted effective, she slept 7hrs. Client denies any history of withdrawal-induced seizure. She is on universal precautions. Call light within reach. Side rails up x 2, bed locked and in low position.
[2017-06-20] MEDS ORDERED: GABA-534 PO (07:51)
[2017-06-20] MEDS ORDERED: ONDA4TAB11 SL (07:51)
[2017-06-20] MEDS ORDERED: CLON0.1T14 PO (07:51)
[2017-06-20] MEDS ORDERED: METH-406 PO (07:51)
[2017-06-20] MEDS ORDERED: HYDR-3895 PO (07:51)
[2017-06-20] MEDS: LAMOTRIGINE 100 MG TABLET PO SCH (08:25)
[2017-06-20] MEDS: OMEPRAZOLE 40MG PO SCH (08:25)
[2017-06-20] MEDS: DOCUSATE SODIUM 250 MG CAPSULE PO SCH (08:25)
[2017-06-20] MEDS: FAMOTIDINE 20 MG TABLET PO SCH (08:25)
[2017-06-20] MEDS: ESCITALOPRAM OXALATE 10 MG TABLET PO SCH (08:26)
[2017-06-20] MEDS: MAG HYDROX/AL HYDROX/SIMETH 30 ML LIQUID UDC PO PRN (08:26)
[2017-06-20] MEDS: IBUPROFEN 600 MG TABLET PO PRN (08:26)
--- NOTE | 2017-06-20 08:26 | NUR ---
PRN Maalox 30mL, Ibuprofen 600mg Client reports heartburn and generalized body aches 3/10, above medications administered PO. Will continue to monitor.Call light within reach.
[2017-06-20 08:56] VITALS: BP 121/79
[2017-06-20] MEDS ORDERED: GABAPENTIN 300 MG CAPSULE PO SCH (09:00)
--- NOTE | 2017-06-20 09:21 | NUR ---
Discharge note and reassessment of Caleb Higginbotham Client was admitted for opiate withdrawal. Client has a recent COWS of 3. Client VS are WNL. Client LBM was 06/20/17. Client denies any SI/HI. Client verbalized her understanding of the discharge instructions. Client has no complaints at this time. Client discharge instructions, prescriptions, medications and all belongings returned to client. All needs addressed at this time, client reports relief from heartburn and body aches 0/10. Client ID band removed, Client ambulated off of unit, Client left facility via [facility] for home.
== END 2017-06-20 09:18 | disposition home or self-care (01) | DRG 895 ==
LOC: SRC 16:19
PROVIDERS: ADMIT Internal Medicine; ATTEND Internal Medicine
DX: F11.23 Opioid dependence with withdrawal (principal); F31.9 Bipolar disorder, unspecified; Z87.442 Personal history of urinary calculi; Z88.0 Allergy status to penicillin; Z88.2 Allergy status to sulfonamides; Z88.8 Allergy status to other drugs, medicaments and biological substances; R33.0 Drug induced retention of urine; Z98.890 Other specified postprocedural states
CPT/HCPCS: 36415; 70030-TC; 80307; 80346; 83735; 84703; 85025; 86580; 86592; 86705; 86803; 87340; 87806; A4663; C1758; G0480; Q0162; Q0163